=== PATIENT | female | born 1985 | race African-American/Black ===

== ENCOUNTER 2020-02-13 15:49 | Emergency (ER) | payer MEDICAID, OTHER ==
[~2020-02-13] VITALS: Ht 152.4 cm; Wt 100.0 kg
[2020-02-13 15:51] VITALS: BP 136/83
== END 2020-02-13 17:00 | disposition home or self-care (01) ==
LOC: ER 15:49
DX: T19.2XXA Foreign body in vulva and vagina, initial encounter (principal); G40.909 Epilepsy, unspecified, not intractable, without status epilepticus; Z98.890 Other specified postprocedural states; X58.XXXA Exposure to other specified factors, initial encounter; Y93.89 Activity, other specified; Y92.018 Other place in single-family (private) house as the place of occurrence of the external cause
CPT/HCPCS: 99284